=== PATIENT | male | born 1985 | race Caucasian/White ===

== ENCOUNTER 2017-04-04 17:47 | Emergency (ER) | payer OTHER ==
[~2017-04-04] VITALS: Ht 180.3 cm; Wt 88.5 kg
[2017-04-04] MEDS ORDERED: MORPHINE SULFATE 4 MG/1 ML DISP.SYRIN IM ONE (18:15)
[2017-04-04] MEDS ORDERED: ONDANSETRON ODT 4 MG TAB.RAPDIS SL ONE (18:15)
[2017-04-04] MEDS ORDERED: ONDANSETRON ODT 4 MG TAB.RAPDIS ONE (18:33)
[2017-04-04] MEDS ORDERED: MORPHINE SULFATE 4 MG/1 ML DISP.SYRIN ONE (18:34)
[2017-04-04] MEDS ORDERED: IV NORMAL SALINE 1000 ML BAG IV ONE (19:00)
[2017-04-04] MEDS ORDERED: HYDROMORPHONE 1 MG/1 ML DISP.SYRIN IV ONE ×2 (19:00→20:00)
--- NOTE | 2017-04-04 19:09 | NUR ---
hands off report given to berto coy
[2017-04-04] MEDS ORDERED: HYDROMORPHONE 2 MG/1 ML DISP.SYRIN ONE ×2 (19:17→20:37)
--- NOTE | 2017-04-04 19:25 | NUR ---
PT BACK FROM CT
[2017-04-04] MEDS ORDERED: KETOROLAC TROMETHAMINE 30 MG INJ IVP ONE (20:45)
--- NOTE | 2017-04-04 20:49 | NUR ---
PT'S AMBULATION W/ CRUTCHES WAS EVALUATED BY MD WINKLER Addendum: 04/04/17 at 2050 by JCALLOWAY PT ABLE TO AMBULATE W/ CRUTCHES. WITNESSED BY MD WINKLER.
[2017-04-04] MEDS ORDERED: KETOROLAC TROMETHAMINE 30 MG INJ ONE (21:01)
--- NOTE | 2017-04-04 21:02 | NUR ---
Patient discharged to home in stable conditon. Written and verbal after care instructions given. Patient verbalizes understanding of instructions.
[2017-04-04 21:03] VITALS: BP 141/84
== END 2017-04-04 20:54 | disposition home or self-care (01) ==
LOC: ER 17:47
DX: S32.9XXA Fracture of unspecified parts of lumbosacral spine and pelvis, initial encounter for closed fracture (principal); K50.90 Crohn's disease, unspecified, without complications; X58.XXXA Exposure to other specified factors, initial encounter; Y93.89 Activity, other specified; Y92.89 Other specified places as the place of occurrence of the external cause; Y99.8 Other external cause status
CPT/HCPCS: 72131; 73502; 73551; A4663; J1170; J1885; J2270; J7030; Q0162